=== PATIENT | male | born 1995 | race Caucasian/White ===

== ENCOUNTER 2024-02-19 14:00 | Emergency (ER) | payer SELFPAY ==
[~2024-02-19] VITALS: Ht 175.3 cm; Wt 56.7 kg
[2024-02-19] MEDS: IV NS 0.9% 1,000 ML BAG IV ONE (14:37)
[2024-02-19] MEDS ORDERED: ONDANSETRON HCL/PF 4 MG/2 ML VIAL ONE (14:40)
[2024-02-19] MEDS ORDERED: LORAZEPAM INJ 2 MG/ML VIAL ONE ×2 (14:41→17:08)
[2024-02-19 14:48] LABS: BASOPHILS % (AUTO) 1.3 % (0.0-2.0); EOSINOPHILS % (AUTO) 0.5 % (0.0-6.0); HEMATOCRIT 36 % (39-51); HEMOGLOBIN 12.3 g/dL (13.5-17.5); LYMPHOCYTES # (AUTO) 0.6 K/uL (0.8-4.8); LYMPHOCYTES % (AUTO) 20.4 % (20.0-44.0); MEAN CORPUSCULAR HEMOGLOBIN 35 PG (26.0-33.0); MEAN CORPUSCULAR HGB CONC 34 g/dl (31.0-36.0); MEAN CORPUSCULAR VOLUME 101 fL (80-96); MONOCYTES # (AUTO) 0.4 K/uL (0.1-1.30); NEUTROPHILS # (AUTO) 2.1 K/uL (1.8-8.9); NEUTROPHILS % (AUTO) 64.8 % (43.0-81.0); PLATELET COUNT (AUTO) 223 K/uL (150-450); RED BLOOD CELL COUNT(AUTO) 3.55 MIL/uL (4.5-6.0); RED CELL DISTRIBUTION WIDTH 17.1 % (11.5-15.0); WHITE BLOOD COUNT (AUTO) 3.2 K/uL (4.3-11.0)
[2024-02-19] MEDS: ONDANSETRON HCL/PF 4 MG/2 ML VIAL IVP ONE (14:50)
[2024-02-19] MEDS: LORAZEPAM INJ 2 MG/ML VIAL IV ONE ×2 (14:50→17:27)
[2024-02-19 14:56] LABS: CALCIUM, SERUM 8.5 mg/dL (8.5-10.1); CREATININE 0.8 mg/dL (0.6-1.3); POTASSIUM 3.2 mmol/L (3.5-5.1)
[2024-02-19 15:03] LABS: ALBUMIN 3.3 g/dL (3.4-5.0); BILIRUBIN,DIRECT 1.1 mg/dL (0.0-0.2); BILIRUBIN,TOTAL 1.9 mg/dL (0.2-1.0); TOTAL PROTEIN, SERUM 7.4 g/dL (6.4-8.2)
[2024-02-19] MEDS ORDERED: FAMOTIDINE/PF INJ 20 MG/2 ML VIAL IV ONE (17:08)
[2024-02-19] MEDS: FAMOTIDINE/PF INJ 20 MG/2 ML VIAL IV ONE (17:28)
[2024-02-19 17:35] LABS: ALCOHOL, BLOOD 51 mg/dL (0-10)
[2024-02-19 17:36] LABS: ACETAMINOPHEN 0 ug/ml (10-30); SALICYLATE < 0.2 mg/dL (2.8-20.0)
[2024-02-19] MEDS ORDERED: LORA-259 PO (19:00)
[2024-02-19] MEDS ORDERED: FAMO-131 PO (19:00)
[2024-02-19 19:18] VITALS: BP 101/77; TEMP 98.1; O2SAT 98
== END 2024-02-19 19:19 | disposition home or self-care (01) ==
LOC: ER 14:12
DX: F10.139 Alcohol abuse with withdrawal, unspecified (principal); R11.2 Nausea with vomiting, unspecified; R74.01 Elevation of levels of liver transaminase levels; G25.2 Other specified forms of tremor; R20.2 Paresthesia of skin; Z88.0 Allergy status to penicillin; Z88.8 Allergy status to other drugs, medicaments and biological substances; Z60.2 Problems related to living alone; Y90.2 Blood alcohol level of 40-59 mg/100 ml
CPT/HCPCS: 99285; 96374; 96361; 96375; 96376; 85025; 80048; 83690; 80076; 36415; 80143; 80320; 80179; 98960; J2060 ×2; J3490; J2405; J7030; G0480